=== PATIENT | male | born 1965 | race Caucasian/White ===

== ENCOUNTER 2021-10-09 00:59 | Day surgery (SDC) | payer OTHER, SELFPAY ==
[2021-09-30 15:17] VITALS: BMI 29.4
[2021-10-09 07:28] VITALS: BP 129/89; PULSE 86; RESP 18; TEMP 35.9; O2SAT 100; BMI 27.8
--- NOTE | 2021-10-09 07:45 | P.CONGI_ITS ---
Assessment and Plan Assessment and plan (1) Encounter for screening colonoscopy: Code(s): Z12.11 - Encounter for screening for malignant neoplasm of colon Status: Acute Assessment and Plan: Patient presents today for screening colonoscopy. He does have a prior history of hyperplastic colon polyps. Further recommendations will be given after endoscopy. GI Consult Note Consult date/time: 10/09/21 07:45 HPI: Danny Davis is a 56 year old male Presents for screening colonos copy. Patient's current weight appetite and bowel movements are normal. He denies abdominal pain. He has had no bleeding. Family history is noncontributory. Patient's last colonoscopy 2014 revealed several hyperplastic colon polyps. Patient presents today for neoplasia screening colonoscopy. Review of Systems Review of Systems: All systems reviewed & are unremarkable except as noted in HPI and below PMFSH Social History Social History Smoking status: Former smoker Tobacco type: cigarettes Alcohol intake: current Drinks per week: 10 Living arrangements: with family Spiritual care concerns: No Meds Home Medications and Allergies Home Medications Medication Instructions Recorded Confirmed Type lisinopril 10 mg PO DAILY 09/30/21 10/09/21 History Allergies Allergy/AdvReac Type Severity Reaction Status Date / Time No Known Allergies Allergy Mild Verified 10/09/21 07:35 Vital Signs Vital Signs - 24 hr 10/09/21 07:28 Temperature 96.6 F L Pulse Rate 86 Respiratory Rate 18 Blood Pressure 129/89 Pulse Oximetry 100 Exam Narrative: Phys physical exam reveals patient be alert. Vital signs stable. HEENT exam is unremarkable. Patient is anicteric. Lungs are clear to auscultation and percussion. Heart is without murmur or extra sounds. Abdominal exam bowel sounds are present soft nontender with no organomegaly. Digital external rectal exam is normal.
[2021-10-09] MEDS: LACTATED RINGERS 1,000 ML 150 ML IV CONT (07:48)
--- NOTE | 2021-10-09 08:12 | P.PNAN_ITS ---
Anes - Initial Pre Proc Eval Procedure: Operation Date: 10/09/21 08:30 Proposed Procedures p Screening Colonoscopy - Rodney Skinner MD Date/Time: 10/09/21 08:12 Surgeon: Rodney Skinner MD Pre Op Diagnosis: hx of colon polyps Patient Data Age: 56 Gender: M Height: 1.88 m Weight: 98.4 kg Last Vital Signs Temp 96.6 F L 10/09/21 07:28 Pulse 86 10/09/21 07:28 Resp 18 10/09/21 07:28 BP 129/89 10/09/21 07:28 Pulse Ox 100 10/09/21 07:28 Allergies Allergy/AdvReac Type Severity Reaction Status Date / Time No Known Allergies Allergy Mild Verified 10/09/21 07:35 Home Medications Medication Instructions Recorded Confirmed Type lisinopril 10 mg PO DAILY 09/30/21 10/09/21 History Patient hx anesthesia problems: none Family hx anesthesia problems: none Results Review: All pre-operative results and documents have been reviewed as part of the pre-operative evaluation. [facility] Social History Social History Smoking status: Former smoker Tobacco type: cigarettes Alcohol intake: current Drinks per week: 10 Living arrangements: with family Spiritual care concerns: No Anes - Eval Final PreProcedure Day of Procedure 10/09/21 08:12 Patient weight: overweight Heart: regular rate and rhythm Lungs: clear to auscultation Airway: Mallampati scale class II Neurological: alert and oriented Last oral intake: >/= 8 hours ASA classification: II Emergent: no Anesthetic plan: proceed Anesthesia type and monitoring: general GIVS and standard monitoring Results Review: All pre-operative results and documents have been reviewed as part of the pre-operative evaluation. Informed Consent: The patient's anesthetic plan and its attendant risks and benefits were discussed with the patient/family/POA. Questions were solicited and answers provided to the satisfaction of the patient/family/POA.
--- NOTE | 2021-10-09 08:36 | SUR.OPER ---
Addendum entered by Libia Rosado RN 10/09/21 08:37: Dr. Skinner made aware only 2 polyps were sent for biopsy. Original Note: There were 3 total sigmoid polyps. Only 2 were sent for biopsy, because the third was cauterized by Dr. Skinner using the hot snare.
[2021-10-09 08:38] VITALS: BP 108/75; PULSE 82; RESP 23; O2SAT 99
[2021-10-09 08:48] VITALS: BP 120/77; PULSE 65; RESP 12; O2SAT 100
[2021-10-09 08:58] VITALS: BP 118/77; PULSE 67; RESP 19; O2SAT 100
== END 2021-10-09 09:02 | disposition home or self-care (01) ==
PROVIDERS: PCP Family Medicine Adolescent Medicine; Visit Provider Internal Medicine Gastroenterology
PROC: 0DJD8ZZ Inspection of Lower Intestinal Tract, Via Natural or Artificial Opening Endoscopic (ICD-10-PCS; CPT 45378; principal; 2021-10-09 08:30)
DX: Z12.11 Encounter for screening for malignant neoplasm of colon (principal); K63.5 Polyp of colon; K64.8 Other hemorrhoids; Z87.891 Personal history of nicotine dependence
CPT/HCPCS: 45385; 88305; J2704; J7120